=== PATIENT | male | born 1990 | race Caucasian/White ===

== ENCOUNTER 2017-04-14 01:04 | Emergency (ER) | payer MEDICAID ==
[2017-04-14 01:15] VITALS: BP 116/82
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
== END 2017-04-14 02:10 | disposition home or self-care (01) ==
LOC: JP.ED 01:04
DX: F10.120 Alcohol abuse with intoxication, uncomplicated (principal); Y90.8 Blood alcohol level of 240 mg/100 ml or more; F32.9 Major depressive disorder, single episode, unspecified; Z79.899 Other long term (current) drug therapy
CPT/HCPCS: 36415; 80053; 85025; 99284; G0480